=== PATIENT | female | born 1950 | race Caucasian/White ===

== ENCOUNTER 2016-09-11 21:28 | Emergency (ER) | payer BC ==
[~2016-09-11] VITALS: Ht 162.6 cm; Wt 131.0 kg
[~2016-09-11 21:28] MED LIST: HYDR25TA6; IBUP-1542 PO
[2016-09-11 21:40] VITALS: Ht 162.6 cm; Wt 131.0 kg
--- NOTE | 2016-09-11 22:53 | ERD ---
ER Documentation Chief Complaint Date/Time DATE: 09/11/16 TIME: 22:50 Chief Complaint r eye pain and reddes for past day HPI 66-year-old female complaining of right eye pain 2 days. She described pain as a soreness, and achy sensation. Patient states that her eye was swollen yesterday, and swelling has improved today. She normally wears contacts, but not wearing it today. Patient stated that she had similar pains in the past, usually they are from either conjunctivitis, or cat hair in the eye. She also has viral URI symptoms. Denies decreasing vision. Denies eye injury. Denies foreign body sensation. History of surgery of the right orbit. ROS All systems reviewed and are negative except as per history of present illness. Medications Home Meds Active Scripts Ibuprofen* (Motrin*) 600 Mg Tab, 600 MG PO Q6, #30 TAB Prov:SARAHY COULTER 10/04/15 Ibuprofen* (Motrin*) 600 Mg Tab, 600 MG PO Q6, #30 TAB Prov:VALERIE SPRAGUE PA-C 03/29/15 Reported Medications Hydrochlorothiazide (Hydrochlorothiazide) 25 Mg Tablet 06/01/10 Allergies Allergies: Coded Allergies: No Known Allergies (Verified Allergy, Mild, 06/05/10) PMhx/Soc History of Surgery: Yes (right eye) Anesthesia Reaction: No Hx Neurological Disorder: No Hx Respiratory Disorders: No Hx Cardiac Disorders: Yes (htn, high cholesterol) Hx Psychiatric Problems: No Hx Miscellaneous Medical Probl: Yes (Dyslipidemia) Hx Alcohol Use: Yes (occassional) Hx Substance Use: No Hx Tobacco Use: No Physical Exam Vitals Vital Signs Date Time Temp Pulse Resp B/P Pulse Ox O2 Delivery O2 Flow Rate FiO2 09/11/16 21:40 97.8 78 18 165/80 98 Physical Exam General impression: Well-developed, well-nourished. Alert, oriented, in no acute distress Head: Normocephalic, atraumatic. Eyes: PERRL, EOM normal. Conjunctiva not injected. No eye discharge. Respiration: Normal respiratory effort. Lungs clear to auscultate bilaterally. No wheezes, rales or rhonchi. Cardiovascular: Regular rate and rhythm. No murmurs or extra heart sounds. Neuro: Mental status normal, speech normal. Skin: Normal turgor. No rash or lesions. Psych: Normal mood and affect. Results 24 hrs Current Medications Medications (Trade) Dose Ordered Sig/Marquise Route PRN Reason Start Time Stop Time Status Last Admin Dose Admin Proparacaine HCl (Alcaine 0.5%) 1 drop ONCE ONCE RIGHT EYE 09/11/16 23:00 09/11/16 23:01 DC Fluorescein Sodium (Vgrfe-L-Xuqyy) 1 strip ONCE ONCE RIGHT EYE 09/11/16 23:00 09/11/16 23:01 DC Procedures/MDM Tetracaine ophthalmic solution was instilled into patient's right eye. Fluoresceins dye was then applied. Patient was examined under Wood's lamp. No dye uptake was noted. Uncorrected visual acuity showed right eye 20/200, left eye 20/100, bilateral 20/200. Patient usually wears contact lenses with the right eye corrected for distance vision and left eye corrected for reading. Well-appearing 66-year-old female sent to ED was right eye pain 2 days. Both visually and with limited exams are unremarkable. I doubt conjunctivitis, corneal abrasion, corneal ulcer, acute angle-closure glaucoma, or retinal detachment. Patient given referral to [facility], and is advised to follow-up with the chair upholsterer tomorrow. Patient appears well, stable for discharge and outpatient management. Medical decision making shared with patient and family. Education provided to patient and family. Patient and family expressed understanding of the plan. Medications on discharge: None. Follow-up: Recovery Manager tomorrow CYNDI FRANCIS NP Sep 11, 2016 22:53
[2016-09-11] MEDS ORDERED: PROPARACAINE 0.5% 15 ML OPH RIGHT EYE ONE (23:00)
[2016-09-11] MEDS ORDERED: FLUORESCEIN STRIP RIGHT EYE ONE (23:00)
== END 2016-09-12 00:28 | disposition home or self-care (01) ==
LOC: FTE 21:28
DX: H57.11 Ocular pain, right eye (principal); I10 Essential (primary) hypertension
CPT/HCPCS: 99283

== ENCOUNTER 2017-02-18 18:55 | Emergency (ER) | payer BC ==
[~2017-02-18] VITALS: Ht 162.6 cm; Wt 125.0 kg
[2017-02-18 19:04] VITALS: Ht 162.6 cm; Wt 125.0 kg
--- NOTE | 2017-02-18 19:41 | ERD ---
ER Documentation Chief Complaint Date/Time DATE: 02/18/17 TIME: 19:37 Chief Complaint LEFT FOOT SWELLING X1WEEK HPI 66-year-old female presents in emergency department for complaints of left lower leg swelling for 2 weeks now, patient in the recent hysterectomy done, had lymph nodes taken out. Patient continues to have the swelling. Patient describes pain of affected area as cramping pain 4/10 scale, accompanied with the swelling. Patient did not take any medications of symptoms. Patient wasn't care, is worried that she may have CHF. Patient does not have any dyspnea exertion, dyspnea on lying down. Patient without any shortness of breath or wheezing ROS All systems reviewed and are negative except as per history of present illness. Medications Home Meds Active Scripts Ibuprofen* (Motrin*) 600 Mg Tab, 600 MG PO Q6, #30 TAB Prov:SARAHY COULTER 10/04/15 Ibuprofen* (Motrin*) 600 Mg Tab, 600 MG PO Q6, #30 TAB Prov:VALERIE SPRAGUE PA-C 03/29/15 Reported Medications Hydrochlorothiazide (Hydrochlorothiazide) 25 Mg Tablet 06/01/10 Allergies Allergies: Coded Allergies: No Known Allergies (Verified Allergy, Mild, 06/05/10) PMhx/Soc History of Surgery: Yes (right eye) Anesthesia Reaction: No Hx Neurological Disorder: No Hx Respiratory Disorders: No Hx Cardiac Disorders: Yes (htn, high cholesterol) Hx Psychiatric Problems: No Hx Miscellaneous Medical Probl: Yes (Dyslipidemia) Hx Alcohol Use: Yes (occassional) Hx Substance Use: No Hx Tobacco Use: No FmHx Family History: No coronary disease, No diabetes, No other Physical Exam Vitals Vital Signs Date Time Temp Pulse Resp B/P Pulse Ox O2 Delivery O2 Flow Rate FiO2 02/18/17 19:04 98.1 93 18 168/79 96 Physical Exam GENERAL: The patient is well developed and appropriate for usual state of health, in no apparent distress. CHEST: Clear to auscultation bilaterally. There are no rales, wheezes or rhonchi. HEART: Regular rate and rhythm. No murmurs, clicks, rubs or gallops. No S3 or S4. ABDOMEN: Soft, nontender and nondistended. Good bowel sounds. No rebound or guarding. No gross peritonitis. No gross organomegaly or masses. No Santos sign or McBurney point tenderness. BACK: No midline or flank tenderness. EXTREMITIES: No swelling of the left lower leg, +2 pitting edema, negative Homans sign. No erythema, no open wounds noted. Right leg is normal. No swelling. Equal pulses bilaterally. Full range of motion other joints of the body. Grossly neurovascularly intact. NEURO: Alert and oriented. Cranial nerves 2-12 intact. Motor strength in all 4 extremities with 5/5 strength. Sensation grossly intact. Normal speech and gait. SKIN: There is no apparent rash or petechia. The skin is warm and dry. HEMATOLOGIC AND LYMPHATIC: There is no evidence of excessive bruising or lymphedema. No gross cervical, axillary, or inguinal lymphadenopathy. Result Diagram: 02/18/17201902/18/172019 Results 24 hrs Laboratory Tests Test 02/18/17 19:40 02/18/17 20:20 Urine Color YELLOW Urine Clarity SLIGHTLY CLOUDY Urine pH 5.0 Urine Specific [place] 1.009 Urine Ketones NEGATIVEmg/dL Urine Nitrite NEGATIVEmg/dL Urine Bilirubin NEGATIVEmg/dL Urine Urobilinogen NEGATIVEmg/dL Urine Leukocyte Esterase 3+Estiven/ul Urine Microscopic RBC 16/HPF Urine Microscopic WBC 65/HPF Urine Squamous Epithelial Cells FEW/HPF Urine Bacteria FEW/HPF Urine Hemoglobin 3+mg/dL Urine Glucose NEGATIVEmg/dL Urine Total Protein NEGATIVEmg/dl White Blood Count 6.410^3/ul Red Blood Count 4.1610^6/ul Hemoglobin 13.0g/dl Hematocrit 37.8% Mean Corpuscular Volume 90.9fl Mean Corpuscular Hemoglobin 31.3pg Mean Corpuscular Hemoglobin Concent 34.4g/dl Red Cell Distribution Width 17.3% Platelet Count 83922^3/UL Mean Platelet Volume 8.7fl Neutrophils % 57.1% Lymphocytes % 31.1% Monocytes % 6.9% Eosinophils % 3.6% Basophils % 0.8% Nucleated Red Blood Cells % 0.0/100WBC Neutrophils # 3.610^3/ul Lymphocytes # 2.010^3/ul Monocytes # 0.410^3/ul Eosinophils # 0.210^3/ul Basophils # 0.110^3/ul Nucleated Red Blood Cells # 0.010^3/ul Sodium Level 141mmol/L Potassium Level 4.0mmol/L Chloride Level 108mmol/L Carbon Dioxide Level 21mmol/L Anion Gap 16 Blood Urea Nitrogen 13mg/dl Creatinine 0.64mg/dl Glucose Level 106mg/dl Calcium Level 9.1mg/dl Total Bilirubin 0.1mg/dl Direct Bilirubin 0.00mg/dl Indirect Bilirubin 0.1mg/dl Aspartate Amino Transf (AST/SGOT) 29IU/L Alanine Aminotransferase (ALT/SGPT) 27IU/L Alkaline Phosphatase 76IU/L B-Type Natriuretic Peptide 189PG/ML Total Protein 7.3g/dl Albumin 4.6g/dl Globulin 2.70g/dl Albumin/Globulin Ratio 1.70 PROCEDURE: US left lower extremity veins. CLINICAL INDICATION: Left leg pain and swelling. TECHNIQUE: Multiple longitudinal and transverse images of the left lower extremity veins were obtained with lopez scale and color Doppler imaging. The common femoral vein, femoral vein, and popliteal vein were evaluated. 2D grayscale measurements with compression sonography, pulsed Doppler, color Doppler, and pulsed Doppler with augmentation. COMPARISON: No prior studies are available for comparison. FINDINGS: The left common femoral, femoral and popliteal veins are normally compressible throughout. Color flow demonstrates normal filling of the vessels. Normal waveforms are visualized and there is normal response to augmentation. There is extensive subcutaneous adipose tissue edema. IMPRESSION: 1. No evidence of deep vein thrombosis involving the left lower extremity. 2. Extensive subcutaneous adipose tissue edema of the left lower extremity. RPTAT: QQ .Eugene Dyer MD, MD Date Time Electronically viewed and signed by .Eugene Dyer MD, MD on 02/18/2017 20:03 .R/ CC: NOLA VIGIL BUSINESS SUPPORT ASSISTANT Procedures/MDM Medical Decision Making: Patient's pain is most likely consistent with a lymphedema after hysterectomy. She also has an incidental finding of a urinary tract infection. No symptoms of any cellulitis. There is no suspicion for neurovascular compromise. Patient has intact sensation and circulation of the affected extremity. There is low suspicion for septic arthritis. Patient does not have any fever. OLMAN DOES NOT Show Any DVT, No Other Radiology Exams Not Indicated at This Time. Disposition: Home. Patient is given prescription for ibuprofen for pain, Keflex. She is advised to do good perineal hygiene Patient was advised to elevate the affected area and apply ice on affected area. Patient was advised that if symptoms are worse, numbness, tingling, high fever, unable to move joint , worsening symptoms, to return to emergency department immediately. Otherwise, patient is advised to follow up with the primary care doctor in 5-7 days for reevaluation of symptoms. Departure Diagnosis: Primary Impression: Lymphedema Additional Impression: UTI (urinary tract infection) Urinary tract infection type: acute cystitis Hematuria presence: with hematuria Qualified Code: N30.01 - Acute cystitis with hematuria Condition: Stable Patient Instructions: Lymphedema, Understanding Urinary Tract Infections (UTIs) Additional Instructions: Patient is given prescription for ibuprofen for pain, Keflex. She is advised to do good perineal hygiene Patient was advised to elevate the affected area and apply ice on affected area. Patient was advised that if symptoms are worse , numbness, tingling, high fever, unable to move joint, worsening symptoms, to return to emergency department immediately. Otherwise, patient is advised to follow up with the primary care doctor in 5-7 days for reevaluation of symptoms. NOLA VIGIL NP Feb 18, 2017 19:41
--- NOTE | 2017-02-18 20:03 | RADRPT ---
PROCEDURE: US left lower extremity veins. CLINICAL INDICATION: Left leg pain and swelling. TECHNIQUE: Multiple longitudinal and transverse images of the left lower extremity veins were obta ined with lopez scale and color Doppler imaging. The common femoral vein, femoral vein, and popliteal vein were evaluated. 2D grayscale measurements with compression sonography, pulsed Doppler, color D oppler, and pulsed Doppler with augmentation. COMPARISON: No prior studies are available for comparison. FINDINGS: The left common femoral, femoral and popliteal veins are normally compressible throughout. Color fl ow demonstrates normal filling of the vessels. Normal waveforms are visualized and there is normal response to augmentation. There is extensive subcutaneous adipose tissue edema. IMPRESSION: 1. No evidence of deep vein thrombosis involving the left lower extremity. 2. Extensive subcutaneous adipose tissue edema of the left lower extremity. RPTAT: QQ .Eugene Dyer MD, MD Date Time Electronically viewed and signed by .Eugene Dyer MD, MD on 02/18/2017 20:03 .R/
[2017-02-18 20:07] LABS: ADD UMIC YES; UR ASCORBIC ACID NEGATIVE (NEGATIVE); UR BACTERIA FEW /HPF (NONE SEEN); UR BILIRUBIN (Dip) NEGATIVE (NEGATIVE); UR BLOOD (Dip) 3+ mg/dL (NEGATIVE); UR CLARITY SLIGHTLY CLOUDY (CLEAR); UR COLOR YELLOW (YELLOW); UR GLUCOSE (Dip) NEGATIVE (NEGATIVE); UR KETONES (Dip) NEGATIVE (NEGATIVE); UR LEUKOCYTE ESTERASE (Dip) 3+ Leu/ul (NEGATIVE); UR NITRITE (Dip) NEGATIVE (NEGATIVE); UR RBC 16 /HPF (0-5); UR SPECIFIC GRAVITY (Dip) 1.009 (1.003-1.030); UR SQUAMOUS EPITHELIAL CELL FEW /HPF (FEW); UR TOTAL PROTEIN (Dip) NEGATIVE (NEGATIVE); UR UROBILINOGEN (Dip) NEGATIVE (NEGATIVE)
[2017-02-18 20:29] LABS: ADD SCAN DIFF NO
[2017-02-18 20:30] LABS: BASOPHIL # 0.1 10^3/ul (0.0-0.1); BASOPHILS % 0.8 % (0.0-2.0); EOSINOPHILS # 0.2 10^3/ul (0.0-0.5); EOSINOPHILS % 3.6 % (0.0-7.0); HEMATOCRIT 37.8 % (37.0-47.0); LYMPHOCYTES % 31.1 % (15.0-51.0); MEAN CORPUSCULAR HEMOGLOBIN 31.3 pg (29.0-33.0); MEAN CORPUSCULAR HGB CONC 34.4 g/dl (32.0-37.0); MEAN CORPUSCULAR VOLUME 90.9 fl (82.0-101.0); MEAN PLATELET VOLUME 8.7 fl (7.4-10.4); MONOCYTE # 0.4 10^3/ul (0.3-0.9); MONOCYTES % 6.9 % (0.0-11.0); NEUTROPHIL # 3.6 10^3/ul (1.6-7.5); NEUTROPHILS % 57.1 % (39.0-77.0); PLATELET COUNT 232 10^3/UL (140-415); RED BLOOD COUNT 4.16 10^6/ul (4.20-5.40); RED CELL DISTRIBUTION WIDTH 17.3 % (11.5-14.5); WHITE BLOOD COUNT 6.4 10^3/ul (4.8-10.8)
[2017-02-18 20:49] LABS: ALBUMIN 4.6 g/dl (3.3-4.9); ALBUMIN/GLOBULIN RATIO 1.7; BILIRUBIN,INDIRECT 0.1 mg/dl (0-1.1); BILIRUBIN,TOTAL 0.1 mg/dl (0.2-1.3); CALCIUM 9.1 mg/dl (8.4-10.2); CREATININE 0.64 mg/dl (0.44-1.00); TOTAL PROTEIN 7.3 g/dl (6.1-8.1)
[2017-02-18] MEDS ORDERED: ACET500C5 PO (21:21)
[2017-02-18] MEDS ORDERED: CEPH-443 PO (21:21)
== END 2017-02-18 21:51 | disposition home or self-care (01) ==
LOC: FTE 18:55
DX: I89.0 Lymphedema, not elsewhere classified (principal); N30.01 Acute cystitis with hematuria; I10 Essential (primary) hypertension
CPT/HCPCS: 36415; 80053; 81001; 83880; 85025; 93971

== ENCOUNTER 2017-03-05 16:12 | Emergency (ER) | payer BC ==
[~2017-03-05] VITALS: Ht 162.6 cm; Wt 125.3 kg
[~2017-03-05 16:12] MED LIST changes: +ACET500C5 PO; +CEPH-443 PO
[2017-03-05 16:14] VITALS: Ht 162.6 cm; Wt 125.3 kg
[2017-03-05] MEDS ORDERED: KETOROLAC 30 MG INJ IM STA (16:28)
--- NOTE | 2017-03-05 16:36 | ERD ---
ER Documentation Chief Complaint Date/Time DATE: 03/05/17 TIME: 16:33 Chief Complaint 8 head/neck/back 1 day HPI This patient is a pleasant 66-year-old female who presents with 2 complaints. Firstly she states about 4 days ago she fell missed a step and she fell backwards and she hit her head. She did not lose consciousness. She has not had any nausea or vomiting. No dizziness or changes to her vision including double or blurry vision. Patient states she thought she was fine however she has been having a headache recently and so she wants to make sure that nothing serious is wrong. She is not on any blood thinning medications. She has chronic back pain in which she takes [place] for. Her headache radiates to her neck. Pain is mild to moderate. Secondarily patient states she recently took a fecal screening test in which she tested positive for possible colorectal cancer. She states that she is unable to see her primary care doctor until 2 months from now she does not want to wait that long to get checked and so she came to the emergency room. At this time she denies abdominal pain, fever, dark or bloody stools. ROS All systems reviewed and are negative except as per history of present illness. Medications Home Meds Active Scripts Hydrocodone/Acetaminophen ([place] 5-325 Tablet) 1 Each Tablet, 1 TAB PO Q6H Y for PAIN, #20 TAB Prov:RACHAEL HENNESSY PA-C 03/05/17 Ibuprofen* (Ibuprofen*) 600 Mg Tablet, 600 MG PO Q6H Y for PAIN, #30 TAB Prov:RACHAEL HENNESSY PA-C 03/05/17 Acetaminophen* (Tylophen*) 500 Mg Capsule, 1 CAP PO Q6H Y for PAIN AND OR ELEVATED TEMP, #20 CAP Prov:NOLA VIGIL NP 02/18/17 Cephalexin* (Keflex*) 500 Mg Capsule, 500 MG PO QID for 10 Days, CAP Prov:NOLA VIGIL NP 02/18/17 Ibuprofen* (Motrin*) 600 Mg Tab, 600 MG PO Q6, #30 TAB Prov:SARAHY COULTER 10/04/15 Ibuprofen* (Motrin*) 600 Mg Tab, 600 MG PO Q6, #30 TAB Prov:VALERIE SPRAGUE PA-C 03/29/15 Reported Medications Hydrochlorothiazide (Hydrochlorothiazide) 25 Mg Tablet 06/01/10 Allergies Allergies: Coded Allergies: No Known Allergies (Verified Allergy, Mild, 03/05/17) PMhx/Soc History of Surgery: No Anesthesia Reaction: No Hx Neurological Disorder: No Hx Respiratory Disorders: No Hx Cardiac Disorders: No Hx Psychiatric Problems: No Hx Miscellaneous Medical Probl: No Hx Alcohol Use: No Hx Substance Use: No Hx Tobacco Use: No Smoking Status: Never smoker FmHx Family History: No diabetes Physical Exam Vitals Vital Signs Date Time Temp Pulse Resp B/P Pulse Ox O2 Delivery O2 Flow Rate FiO2 03/05/17 16:14 97.9 78 16 155/76 Physical Exam General: well developed, well nourished, alert, nontoxic, no distress Head: normocephalic, atraumatic Eyes: PERRL, normal conjunctiva Neck: Supple, nontender, no lymphadenopathy, no midline tenderness, full range of motion without any pain or limitations Respiratory: Clear to auscaultation bilaterally, speaks in full sentences, no use of accesory muscles or labored breathing, no rales, ronchi, or wheezing Cardiovascular: RRR, No murmurs GI: soft, non tender, non distended, negative murphys sign, negative mcburneys point tenderness, no cva tenderness bilaterally, no rebound or guarding neuro: Cranial nerves II through XII intact, rapid alternating movements within normal limits, secret code expert strength 5 out of 5 bilaterally, finger to nose within normal limits, normal speech, normal gait Results 24 hrs Current Medications Medications (Trade) Dose Ordered Sig/Marquise Route PRN Reason Start Time Stop Time Status Last Admin Dose Admin Ketorolac Tromethamine (Toradol) 30 mg ONCE STAT IM 03/05/17 16:28 03/05/17 16:29 DC 03/05/17 16:32 Procedures/MDM 58-year-old female has headache after mechanical fall 4 days ago. Her neurological examination is normal. She is well-appearing in no distress. CT scan of the brain was ordered. I also reviewed her screening test for colorectal cancer with Dr. Garcia in which she tested positive for he recommended CT scan abdomen pelvis was also ordered. CT showed no acute abnormality. Patient was discharged with ibuprofen and [place] for pain control. She was encouraged to follow with primary care for colonoscopy. Recommended this patient follow up with her primary care doctor within 48 hours or return to the emergency room for any worsening of symptoms. However this time I do believe there is suitable for outpatient management. I answered all their questions and they agreed with the plan and were discharged home. Departure Diagnosis: Primary Impression: Encounter for medical screening examination Additional Impressions: Headache Fall with no significant injury Condition: Stable RACHAEL HENNESSY PA-C Mar 05, 2017 16:36
--- NOTE | 2017-03-05 18:06 | RADRPT ---
PROCEDURE: CT abdomen and pelvis without contrast. CLINICAL INDICATION: Abdominal Pain TECHNIQUE: CT scan of the abdomen and pelvis without contrast was performed and is reconstructed a t 5 mm contiguous axial intervals from the dome of the diaphragm to the inferior pubic rami.. The p atient was scanned without intravenous contrast. Sagittal and coronal reformatted images were obtai kinjal from the axial source images. The calculated radiation dose measures 1351 mGy centimeters. The C TDI measures 24 mGy. COMPARISON: None. FINDINGS: The lung bases are clear of any infiltrate or nodule. No effusion is seen. There are coronary arter y calcifications. The liver is of normal size, contour and attenuation with no mass or ductal dilatation. There are ga llstones. No splenic, adrenal or pancreatic abnormalities present. Kidneys are of normal size and contour. No hydronephrosis, calculus or masses seen. Ureters are o f normal course and caliber with no stone. No bladder mass or stone is present. Uterus is been alexis kandis. No adnexal mass is seen. There is no aneurysm. There are vascular calcifications. No adenopathy is present. No bowel mass or obstruction is present. The appendix is normal. No phlegmon, ascites or pneumop eritoneum is visualized. There is rotary levoscoliosis of the lumbar spine with multilevel degenerative disk disease. IMPRESSION: No evidence of urolithiasis, obstructive uropathy, diverticulitis or appendicitis. Vascular calcifications. Cholelithiasis. Rotary levoscoliosis lumbar spine with multilevel degenerative disk disease. Post hysterectomy. .Houston Johnson MD, Date Time Electronically viewed and signed by .Houston Johnson MD, on 03/05/2017 18:06 .A/
--- NOTE | 2017-03-05 18:06 | RADRPT ---
PROCEDURE: CT Brain without contrast. CLINICAL INDICATION: Trauma. Headache. TECHNIQUE: A multiplanar CT of the brain was performed on a CT scanner utilizing axial imaging fro m the skull base through the vertex without IV contrast. The CTDIvol is 42.02 mGy and the DLP is 72 0.23 mGycm. One or more of the following dose reduction techniques were utilized: Automated exposu re control, adjustment of the mA and/or kV according to patient size, use of iterative reconstructio n technique. COMPARISON: None FINDINGS: No evidence of intracranial hemorrhage or abnormal extra-axial fluid collection. Mild periventricular and subcortical white matter low attenuation compatible with sequelae of chroni c microvascular ischemic injury. The brain parenchyma is otherwise normal attenuation and morpholo gy with preservation of lopez white differentiation. The ventricles and subarachnoid spaces are promi nent compatible with age appropriate volume loss. Atherosclerotic calcification of the internal carotid and vertebral arteries. Nonspecific chronic th inning of the outer table of the calvarium in the right parietal region. The basal cisterns, posterior fossa contents, brainstem, craniocervical junction, orbits, pituitary axis, paranasal sinuses, mastoid air cells, and calvarium are unremarkable. IMPRESSION: 1. No intracranial hemorrhage or acute intracranial abnormality. 2. Mild chronic microvascular ischemic changes and age related volume loss. 3. Atherosclerotic calcification of the internal carotid and vertebral arteries. RPTAT:AAJJ Physician Riley Date Time Electronically viewed and signed by Physician Riley on 03/05/2017 18:06 ROSELINE/
[2017-03-05] MEDS ORDERED: HYDR-906 PO (18:13)
[2017-03-05] MEDS ORDERED: IBUP-1542 PO (18:13)
== END 2017-03-05 18:21 | disposition home or self-care (01) ==
LOC: FTE 16:12
DX: S09.90XA Unspecified injury of head, initial encounter (principal); R51 Headache; W10.9XXA Fall (on) (from) unspecified stairs and steps, initial encounter; Y92.9 Unspecified place or not applicable; Z02.89 Encounter for other administrative examinations
CPT/HCPCS: 70450; 74176; 96372; 99285; J1885

== ENCOUNTER 2017-06-05 18:29 | Emergency (ER) | payer SELFPAY ==
[~2017-06-05] VITALS: Ht 167.6 cm; Wt 127.0 kg
[~2017-06-05 18:29] MED LIST changes: +HYDR-906 PO
[2017-06-05 19:52] VITALS: Ht 167.6 cm; Wt 127.0 kg
== END 2017-06-05 20:17 | disposition left against medical advice (07) ==
LOC: FTE 18:29
DX: Z53.21 Procedure and treatment not carried out due to patient leaving prior to being seen by health care provider (principal)

== ENCOUNTER 2017-07-12 17:20 | Emergency (ER) | payer BC ==
[~2017-07-12] VITALS: Ht 160 cm; Wt 126.0 kg
[2017-07-12 17:26] VITALS: Ht 160 cm; Wt 126.0 kg
[2017-07-12 20:03] LABS: URINE BLOOD (Dip) POC Trace-intact (NEGATIVE)
--- NOTE | 2017-07-12 20:32 | RADRPT ---
PROCEDURE: US Lower extremity Venous. CLINICAL INDICATION: swelling to left calf TECHNIQUE: Multiple sonographic images of the left lower extremity deep venous system was obtained utilizing grayscale, color-flow, compressive sonography and doppler imaging with augmentation. The images were reviewed on a PACS workstation. COMPARISON: February 18, 2017. FINDINGS: There is normal compressibility and flow within the left common femoral, deep femoral, superficial f emoral and popliteal veins. The deep veins the calf were incompletely visualized. IMPRESSION: No sonographic evidence for deep venous thrombosis in the left lower extremity. Physician Mitchell Date Time Electronically viewed and signed by Physician Mitchell on 07/12/2017 20:32 ML/
[2017-07-12] MEDS ORDERED: HYDR-906 PO (20:47)
[2017-07-12] MEDS ORDERED: CIPR500T4 PO (20:47)
[2017-07-12] MEDS ORDERED: NAPR-260 PO (20:47)
--- NOTE | 2017-07-12 23:54 | ERD ---
ER Documentation Chief Complaint Chief Complaint back pain x 1 mos HPI 67-year-old female complaining of back pain 1 month. Patient states that she has history of UTI and would like her urine checked. She has occasional dysuria. Patient states her back pain is chronic and does not feel any different than normal. She denies any numbness or tingling to her extremities. She is also complaining of left lower leg swelling. She states that she had a hysterectomy December 2016 and has had left leg swelling ever since. She denies any calf tenderness. She denies any chest pain or shortness of breath. She has not taken any water pills for her symptoms. ROS All systems reviewed and are negative except as per history of present illness. Medications Home Meds Active Scripts Naproxen* (Naprosyn*) 500 Mg Tablet, 500 MG PO BID Y for PAIN AND/OR INFLAMMATION, #30 TAB Prov:VALERIE SPRAGUE PA-C 07/12/17 Ciprofloxacin Hcl* (Ciprofloxacin Hcl*) 500 Mg Tablet, 500 MG PO BID for 7 Days , TAB Prov:VALERIE SPRAGUE PA-C 07/12/17 Hydrocodone/Acetaminophen (Fulshear 5-325 Tablet) 1 Each Tablet, 1 TAB PO Q6H Y for PAIN, #7 TAB Prov:VALERIE SPRAGUE PA-C 07/12/17 Hydrocodone/Acetaminophen (Fulshear 5-325 Tablet) 1 Each Tablet, 1 TAB PO Q6H Y for PAIN, #20 TAB Prov:RACHAEL HENNESSY PA-C 03/05/17 Ibuprofen* (Ibuprofen*) 600 Mg Tablet, 600 MG PO Q6H Y for PAIN, #30 TAB Prov:RACHAEL HENNESSY PA-C 03/05/17 Acetaminophen* (Tylophen*) 500 Mg Capsule, 1 CAP PO Q6H Y for PAIN AND OR ELEVATED TEMP, #20 CAP Prov:NOLA VIGIL NP 02/18/17 Cephalexin* (Keflex*) 500 Mg Capsule, 500 MG PO QID for 10 Days, CAP Prov:NOLA VIGIL NP 02/18/17 Ibuprofen* (Motrin*) 600 Mg Tab, 600 MG PO Q6, #30 TAB Prov:SARAHY COULTER 10/04/15 Ibuprofen* (Motrin*) 600 Mg Tab, 600 MG PO Q6, #30 TAB Prov:VALERIE SPRAGUE Mariam SHERWOOD 03/29/15 Reported Medications Hydrochlorothiazide (Hydrochlorothiazide) 25 Mg Tablet 06/01/10 Allergies Allergies: Coded Allergies: No Known Allergies (Verified Allergy, Mild, 03/05/17) PMhx/Soc History of Surgery: Yes (Hysterectomy,Ear Surg,Facial Fx Surg) Anesthesia Reaction: No Hx Neurological Disorder: No Hx Respiratory Disorders: No Hx Cardiac Disorders: Yes (HTN) Hx Psychiatric Problems: No Hx Miscellaneous Medical Probl: Yes (Uterine CA,Dyslipidemia) Hx Alcohol Use: Yes (Social) Hx Substance Use: No Hx Tobacco Use: Yes Smoking Status: Former smoker Physical Exam Vitals Vital Signs Date Time Temp Pulse Resp B/P Pulse Ox O2 Delivery O2 Flow Rate FiO2 07/12/17 17:26 98.2 85 18 142/74 99 Physical Exam GENERAL: The patient is well-appearing, well-nourished, in no acute distress HEENT: Atraumatic. Conjunctivae are pink. Pupils equal, round, and reactive to light. There is no scleral icterus. Tympanic membranes clear bilaterally. Oropharynx clear. No nystagmus or photophobia. NECK: C-spine is soft and supple. There is no meningismus. There is no cervical lymphadenopathy. No JVD. No bruits. No goiter. CHEST: Clear to auscultation bilaterally. There are no rales, wheezes or rhonchi. HEART: Regular rate and rhythm. No murmurs, clicks, rubs or gallops. No S3 or S4. ABDOMEN:Soft, nontender and nondistended. Good bowel sounds. No rebound or guarding. No gross peritonitis. No gross organomegaly or masses. No Santos sign or McBurney point tenderness. BACK: No midline or flank tenderness. EXTREMITIES: Swelling noted to the left calf. No pain with Extension. Pulses normal to distal leg. NEUROLOGIC: Alert and oriented. Cranial nerves II through XII intact. Motor strength in all 4 extremities with 5 out of 5 strength. Sensation grossly intact. Normal speech and gait. Babinski negative. DTR 2+ throughout. SKIN: There is no apparent rash or petechiae. The skin is warm and dry. Results 24 hrs Laboratory Tests Test 07/12/17 20:02 Bedside Urine pH (LAB) 5.5 Bedside Urine Protein (LAB) Negative Bedside Urine Glucose (UA) Negative Bedside Urine Ketones (LAB) Negative Bedside Urine Blood Trace-intact Bedside Urine Nitrite (LAB) Negative Bedside Urine Leukocyte Esterase (L 1+ Procedures/[facility] DIAGNOSTIC IMAGING REPORT Patient: KAMERON SUH : 1950 Age: 67 Sex: F MR #: [id number] DOS: 07/12/171935 Ordering MD: ANDREW SPRAGUE PA-C Location: [facility] Room/Bed: PROCEDURE: US Lower extremity Venous. CLINICAL INDICATION: swelling to left calf TECHNIQUE: Multiple sonographic images of the left lower extremity deep venous system was obtained utilizing grayscale, color-flow, compressive sonography and doppler imaging with augmentation. The images were reviewed on a PACS workstation. COMPARISON: February 18, 2017. FINDINGS: There is normal compressibility and flow within the left common femoral, deep femoral, superficial femoral and popliteal veins. The deep veins the calf were incompletely visualized. IMPRESSION: No sonographic evidence for deep venous thrombosis in the left lower extremity. MDM: 67 yr old female complaining of leg swelling, dysuria and back pain. I have low suspicion for pyelo. I have low suspicion for discitis or epidural abscess. I have low suspicion for cauda equina. I have low suspicion for DVT. Patient is discharged with strict ER precautions. Patient's urine appears to be infected, I will send urine for culture. Departure Diagnosis: Primary Impression: UTI (urinary tract infection) Condition: Stable Patient Instructions: Understanding Urinary Tract Infections (UTIs), Back Pain (Acute Or Chronic) Additional Instructions: FOLLOW UP WITH YOUR PRIMARY CARE PHYSICIAN TOMORROW.Return to this facility if you are not improving as expected. VALERIE SPRAGUE PA-C Jul 12, 2017 23:54
== END 2017-07-12 20:55 | disposition home or self-care (01) ==
LOC: FTE 17:20
DX: N39.0 Urinary tract infection, site not specified (principal); I10 Essential (primary) hypertension; Z85.42 Personal history of malignant neoplasm of other parts of uterus; Z87.891 Personal history of nicotine dependence
CPT/HCPCS: 81003; 87086; 93971

== ENCOUNTER 2017-08-30 17:56 | Emergency (ER) | END 2017-08-30 19:12 | disposition left against medical advice (07) ==